=== PATIENT | female | born 1940 | race Caucasian/White ===

== ENCOUNTER 2017-12-05 13:16 | Emergency (ER) | payer MEDICARE ==
[~2017-12-05] VITALS: Ht 162.6 cm; Wt 63.5 kg
[2017-12-05] MEDS ORDERED: DIAZEPAM INJ 5 MG/ML 2 ML IM ONE (14:00)
[2017-12-05] MEDS ORDERED: ROBAXIN-750750 MG PO (15:51)
[2017-12-05 16:23] VITALS: BP 121/64
== END 2017-12-05 15:55 | disposition home or self-care (01) ==
LOC: FSED 13:16
DX: M54.6 Pain in thoracic spine (principal); M54.5 Low back pain; M54.2 Cervicalgia; G89.29 Other chronic pain
CPT/HCPCS: 80053; 80307; 85025; 99283; J3360